=== PATIENT | male | born 1985 | race Caucasian/White ===

== ENCOUNTER 2020-08-04 23:01 | Emergency (ER) | payer OTHER ==
[~2020-08-04] VITALS: Ht 180.3 cm; Wt 72.6 kg
[~2020-08-04 23:01] MED LIST: AMOX500 PO; CODACE30 PO
== END 2020-08-05 00:14 | disposition home or self-care (01) ==
LOC: ER 23:01
DX: S92.514A Nondisplaced fracture of proximal phalanx of right lesser toe(s), initial encounter for closed fracture (principal); W22.03XA Walked into furniture, initial encounter
CPT/HCPCS: 73630; 99283-25; A9270

== ENCOUNTER 2020-12-20 19:26 | Emergency (ER) | payer OTHER ==
[~2020-12-20] VITALS: Ht 180.3 cm; Wt 70.3 kg
[2020-12-20] MEDS ORDERED: OXAYDO5 M1 PO (22:20)
== END 2020-12-20 22:40 | disposition home or self-care (01) ==
LOC: ER 19:26
DX: S61.201A Unspecified open wound of left index finger without damage to nail, initial encounter (principal); Z23 Encounter for immunization; W45.8XXA Other foreign body or object entering through skin, initial encounter
CPT/HCPCS: 73130; 90471; 90714; 99283-25; A9270